=== PATIENT | male | born 1995 | race Caucasian/White ===

== ENCOUNTER 2019-04-16 11:06 | Emergency (ER) | payer OTHER ==
[~2019-04-16] VITALS: Ht 172.7 cm; Wt 68.0 kg
--- NOTE | 2019-04-16 11:10 | NUR ---
BIB MOM C/O BACK PAIN STARTED LAST NIGHT, DENIES INJURY, TO ER BED 10, PATIENT CANNOT MOVE, NOTED W FACIAL GRIMACE, HOOKED TO MONITOR, AWAITING MD LISA.
--- NOTE | 2019-04-16 11:18 | NUR ---
DR MONDRAGON AT BEDSIDE
[2019-04-16] MEDS ORDERED: KETOROLAC TROMETHAMINE INJ 60 MG/2 ML VIAL IM ONE (11:30)
[2019-04-16] MEDS ORDERED: ONDANSETRON 4 MG TAB.RAPDIS SL ONE (11:30)
[2019-04-16] MEDS ORDERED: HYDROMORPHONE 1 MG/1 ML DISP.SYRIN IM ONE (11:30)
[2019-04-16] MEDS ORDERED: DEXAMETHASONE SOD PHOSPHATE 10 MG/ML VIAL IM ONE (11:30)
[2019-04-16] MEDS ORDERED: DEXAMETHASONE SOD PHOSPHATE 4 MG/ML VIAL ONE (11:36)
[2019-04-16] MEDS ORDERED: KETOROLAC TROMETHAMINE INJ 30 MG/ML VIAL ONE (11:36)
[2019-04-16] MEDS ORDERED: HYDROMORPHONE 1 MG/1 ML DISP.SYRIN ONE (11:36)
[2019-04-16] MEDS ORDERED: ONDANSETRON 4 MG TAB.RAPDIS ONE (11:36)
--- NOTE | 2019-04-16 11:50 | NUR ---
WHEELED OUT VIA [facility] FOR CT SCAN
--- NOTE | 2019-04-16 13:11 | NUR ---
Patient discharged to home in stable condition. Written and verbal after care instructions given. Patient verbalizes understanding of instruction.
[2019-04-16 13:13] VITALS: BP 119/79
== END 2019-04-16 13:14 | disposition home or self-care (01) ==
LOC: ER 11:08
DX: M51.26 Other intervertebral disc displacement, lumbar region (principal); J45.909 Unspecified asthma, uncomplicated; Z88.0 Allergy status to penicillin
CPT/HCPCS: 72131; 96372 ×3; 99284; J1100; J1170; J1885; Q0162

== ENCOUNTER 2021-09-06 10:40 | Emergency (ER) | payer OTHER ==
[~2021-09-06] VITALS: Ht 172.7 cm; Wt 72.6 kg
[2021-09-06 10:50] VITALS: BP 143/87
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
[2021-09-06] MEDS ORDERED: IBUPROFEN 600 MG TABLET ONE (11:43)
[2021-09-06] MEDS ORDERED: ACETAMINOPHEN ES 500 MG TABLET ONE (11:43)
[2021-09-06] MEDS: ACETAMINOPHEN ES 500 MG TABLET PO ONE (11:45)
[2021-09-06] MEDS: IBUPROFEN 600 MG TABLET PO ONE (11:45)
[2021-09-06] MEDS ORDERED: IBUP-1957 PO (12:15)
--- NOTE | 2021-09-06 13:08 | NUR ---
Patient discharged to home in stable condition. Written and verbal after care instructions given. Patient verbalizes understanding of instruction.
== END 2021-09-06 13:08 | disposition home or self-care (01) ==
LOC: ER 10:49
DX: S62.357A Nondisplaced fracture of shaft of fifth metacarpal bone, left hand, initial encounter for closed fracture (principal); J45.909 Unspecified asthma, uncomplicated; F17.200 Nicotine dependence, unspecified, uncomplicated; Z88.0 Allergy status to penicillin; X50.9XXA Other and unspecified overexertion or strenuous movements or postures, initial encounter; Y93.89 Activity, other specified; Y92.89 Other specified places as the place of occurrence of the external cause; Y99.8 Other external cause status
CPT/HCPCS: 73130-TC

== ENCOUNTER 2021-11-28 00:06 | Emergency (ER) | payer OTHER ==
[~2021-11-28] VITALS: Ht 172.7 cm; Wt 72.6 kg
[~2021-11-28 00:06] MED LIST: IBUP-1957 PO
[2021-11-28 00:40] VITALS: BP 133/70
== END 2021-11-28 01:57 | disposition home or self-care (01) ==
LOC: ER 00:13
DX: S00.01XA Abrasion of scalp, initial encounter (principal); F17.200 Nicotine dependence, unspecified, uncomplicated; J45.909 Unspecified asthma, uncomplicated; W01.0XXA Fall on same level from slipping, tripping and stumbling without subsequent striking against object, initial encounter; Y93.89 Activity, other specified; Y92.89 Other specified places as the place of occurrence of the external cause; Y99.8 Other external cause status; Z88.0 Allergy status to penicillin; Z79.1 Long term (current) use of non-steroidal anti-inflammatories (NSAID)